=== PATIENT | female | born 1965 | race Caucasian/White ===

== ENCOUNTER 2019-09-22 12:53 | Emergency (ER) | payer SELFPAY ==
[2019-09-22] MEDS ORDERED: dexAMETHasone 10 MG/ML VIAL ONE (14:53)
--- NOTE | 2019-09-22 15:05 | RAD REPORT ---
EXAM DESCRIPTION: RAD - Hand Right 3 View - 09/22/2019 2:47 pm CLINICAL HISTORY: PAINworsening hand pain, patient provided history of arthritis COMPARISON: Hand Right 3 View dated 10/26/2013 FINDINGS: No fracture is identified. There is no dislocation or periosteal reaction noted. Mild IP joint space narrowing present without erosive component. Minimal marginal spurring seen at the fifth DIP joint. No periarticular calcification, mass or measurable soft tissue swelling. No foreign body s een. IMPRESSION: Minimal degenerative change present similar to 2013. No acute finding.
--- NOTE | 2019-09-22 15:16 | ER ---
Nurse's Notes [facility] Name: Jess Oquendo Age: 54 yrs Sex: Female : 1965 Arrival Date: 09/22/2019 Time: 12:54 Bed 20 Private MD: Diagnosis: Carpal tunnel syndrome;Primary osteoarthritis, unspecified hand Presentation: 09/21 13:00 Chief complaint: Patient states: Arthritis on both hands, and worst on R hand. For the ca1 past few days, it's worst, numb, swelling and has shooting pain. Coronavirus screen: Proceed with normal triage. Patient denies a cough. Patient denies shortness of breath or difficulty breathing. Patient denies measured and/or subjective temperature greater than 100.4F prior to today's visit. Patient denies travel on a cruise ship or to a country the [facility] currently lists as an affected area. Patient denies contact with known and/or suspected case of COVID-19. Ebola Screen: Patient negative for fever greater than or equal to 101.5 degrees Fahrenheit, and additional compatible Ebola Virus Disease symptoms Patient denies exposure to infectious person. Patient denies travel to an Ebola-affected area in the 21 days before illness onset. No symptoms or risks identified at this time. Initial Sepsis Screen: Does the patient meet any 2 criteria? No. Patient's initial sepsis screen is negative. Does the patient have a suspected source of infection? No. Patient's initial sepsis screen is negative. Risk Assessment: Do you want to hurt yourself or someone else? Patient reports no desire to harm self or others. Onset of symptoms was September 22, 2019. 13:00 Method Of Arrival: Ambulatory ca1 13:00 Acuity: BELKYS 3 ca1 CARDIO CLINICIAN: 13:05 LMP N/A - Post-menopause ca1 Historical: - Allergies: 13:05 ACETAMINOPHEN; ca1 13:05 caffeine; ca1 13:05 PENICILLINS; ca1 - Home Meds: 13:05 None [Active]; ca1 - PMHx: 13:05 Arthritis; ca1 - PSHx: 13:05 Tubal ligation; Tonsillectomy; ca1 - Immunization history:: Adult Immunizations up to date. - Social history:: Smoking status: Patient reports the use of cigarette tobacco products, smokes one-half pack cigarettes per day. - Family history:: not pertinent. - Hospitalizations: : No recent hospitalization is reported. Screenin:00 Abuse screen: Denies threats or abuse. Nutritional screening: No deficits noted. rb1 Tuberculosis screening: No symptoms or risk factors identified. Fall Risk None identified. Assessment: 14:00 General: Appears in no apparent distress. Behavior is calm, cooperative. Pain: rb1 Complains of pain in right hand Pain currently is 8 out of 10 on a pain scale. Pain began x 1 week. Neuro: Level of Consciousness is awake, alert, obeys commands, Oriented to person, place, time, situation. Neuro: Reports numbness in right hand Tingling starting in the left hand. Cardiovascular: Capillary refill < 3 seconds. Respiratory: Airway is patent Respiratory effort is even, unlabored, Respiratory pattern is regular, symmetrical. GI: No signs and/or symptoms were reported involving the gastrointestinal system. : No signs and/or symptoms were reported regarding the genitourinary system. Derm: Skin is pink, warm \T\ dry. Musculoskeletal: Range of motion: limited in right hand. 14:41 Reassessment: X-ray at the bedside. rb1 15:00 Reassessment: Patient appears in no apparent distress at this time. Patient and/or rb1 family updated on plan of care and expected duration. Pain level reassessed. Patient is alert, oriented x 3, equal unlabored respirations, skin warm/dry/pink. Vital Signs: 13:00 BP 169 / 104; Pulse 111; Resp 15 S; Temp 98.1(TE); Pulse Ox 98% on R/A; Weight 72.57 kg ca1 (R); Height 5 ft. 5 in. (165.10 cm) (R); Pain 8/10; 15:00 BP 162 / 98; Pulse 107; Resp 16; Pulse Ox 99% on R/A; rb1 13:00 Body Mass Index 26.63 (72.57 kg, 165.10 cm) ca1 ED Course: 12:54 Patient arrived in ED. as 13:04 Triage completed. ca1 13:05 Arm band placed on right wrist. ca1 13:54 Michelle Garrett, RN is Primary Nurse. ca1 13:59 Rick Walsh MD is Attending Physician. rn 14:00 Patient has correct armband on for positive identification. Bed in low position. Call rb1 light in reach. Side rails up X 1. Pulse ox on. NIBP on. Warm blanket given. 14:35 Deborah Koo, RN is Primary Nurse. rb1 14:47 XRAY Hand RIGHT 3 View In Process Unspecified. EDMS 15:13 Sean Kaiser MD is Referral Physician. rn 15:42 Orthoglass splint: wrist. 4 15:56 Patient did not have IV access during this emergency room visit. rb1 15:56 No provider procedures requiring assistance completed. rb1 Administered Medications: 14:47 Drug: Decadron 10 mg Route: IM; Site: right deltoid; rb1 15:03 Follow up: Response: No adverse reaction rb1 Outcome: 15:15 Discharge ordered by MD. rn 15:56 Discharged to home ambulatory, with family. iw 15:56 Condition: good 15:56 Discharge instructions given to patient, Instructed on discharge instructions, follow up and referral plans. medication usage, Demonstrated understanding of instructions, follow-up care, medications, splint care, Prescriptions given X 1. 15:56 Patient left the ED. iw Signatures: Dispatcher [employer] Barbie Sommer Irene, RN RN Rick Cavanaugh MD MD rn Barber, Rebecca, RN RN rb1 Michelle Garrett RN RN [facility] Jason Odon[facility]
--- NOTE | 2019-09-22 15:16 | EDPHYS ---
Physician Documentation [facility] Name: Jess Oquendo Age: 54 yrs Sex: Female : 1965 Arrival Date: 09/22/2019 Time: 12:54 Bed 20 Private MD: ED Physician Rick Walsh HPI: 09/21 15:03 This 54 yrs old Female presents to ER via Ambulatory with complaints of rn Numbness Of Hand, Hand Pain. 15:03 The patient or guardian reports pain. The complaints affect the left hand diffusely, rn right hand diffusely. Onset: The symptoms/episode began/occurred 1 year(s) ago. Modifying factors: The symptoms are alleviated by nothing, the symptoms are aggravated by movement. Severity of symptoms: At their worst the symptoms were mild, in the emergency department the symptoms are unchanged. The patient has experienced similar episodes in the past. The patient has not recently seen a physician. Reports pain to both hands, right hand started hurting more than a year ago, has been compensating with left hand for a few months, and now left hand hurting the same, reports numbness and tingling with shooting pains to both hands, worse at night and with overuse. No fever or rash. . 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 - Social history:: Smoking status: Patient reports the use of cigarette tobacco products, smokes one-half pack cigarettes per day. - Family history:: not pertinent. - Hospitalizations: : No recent hospitalization is reported. ROS: 15:03 Constitutional: Negative for fever, chills, and weight loss, MS/Extremity: Negative for rn injury and deformity, + bilateral hand pain and tingling Skin: Negative for injury, rash, and discoloration, Neuro: Negative for weakness Exam: 15:03 Constitutional: This is a well developed, well nourished patient who is awake, alert, rn and in no acute distress. MS/ Extremity: Pulses equal, no cyanosis. Left hand with FROM, no weakness, right hand with mild diffuse swelling, no focal tenderness, no deviation or fingers/joints, no fusiform swelling/erythema. Nothing more proximal than bilateral wrists. Vital Signs: 13:00 BP 169 / 104; Pulse 111; Resp 15 S; Temp 98.1(TE); Pulse Ox 98% on R/A; Weight 72.57 kg ca1 (R); Height 5 ft. 5 in. (165.10 cm) (R); Pain 8/10; 15:00 BP 162 / 98; Pulse 107; Resp 16; Pulse Ox 99% on R/A; rb1 13:00 Body Mass Index 26.63 (72.57 kg, 165.10 cm) ca1 MDM: 14:00 Patient medically screened. rn 15:12 Differential diagnosis: carpal tunnel syndrome, arthritis. Data reviewed: vital signs, rn nurses notes, radiologic studies, plain films, and as a result, I will discharge patient. Counseling: I had a detailed discussion with the patient and/or guardian regarding: the historical points, exam findings, and any diagnostic results supporting the discharge/admit diagnosis, radiology results, the need for outpatient follow up, to return to the emergency department if symptoms worsen or persist or if there are any questions or concerns that arise at home. Special discussion: I discussed with the patient/guardian in detail that at this point there is no indication for admission to the hospital. It is understood, however, that if the symptoms persist or worsen the patient needs to return immediately for re-evaluation. Based on the history and exam findings, there is no indication for further emergent testing or inpatient evaluation. I discussed with the patient/guardian the need to see the hand specialist for further evaluation of the symptoms. 09/21 14:27 Order name: XRAY Hand RIGHT 3 View; Complete Time: 15:10 rn 09/21 15:12 Order name: Splint - Wrist: pre-formed wrist splints, both wrists, cock up splints; rn Complete Time: 15:45 Administered Medications: 14:47 Drug: Decadron 10 mg Route: IM; Site: right deltoid; rb1 15:03 Follow up: Response: No adverse reaction rb1 Disposition: 09/22/19 15:15 Discharged to Home. Impression: Carpal tunnel syndrome, Primary osteoarthritis, unspecified hand. - Condition is Stable. - Discharge Instructions: Arthritis, Carpal Tunnel Syndrome, Wrist Splint. - Prescriptions for Medrol (Adriel) 4 mg Oral Tablets, Dose Pack - take 1 tablet by ORAL route as directed - follow package instructions; 1 packet. - Medication Reconciliation Form, Thank You Letter, Antibiotic Education, Prescription Opioid Use form. - Follow up: Sean Kaiser MD; When: As needed; Reason: Recheck today's complaints, Re-evaluation by your physician. - Problem is new. - Symptoms have improved. Signatures: Dispatcher [employer] EDKatherine Olguin RN RN iw Rick Walsh MD MD rn Barber, Rebecca, RN RN rb1 Michelle Garrett RN RN ca1 Corrections: (The following items were deleted from the chart) 15:56 15:15 09/22/2019 15:15 Discharged to Home. Impression: Carpal tunnel syndrome; Primary iw osteoarthritis, unspecified hand. Condition is Stable. Forms are Medication Reconciliation Form, Thank You Letter, Antibiotic Education, Prescription Opioid Use. Follow up: Sean Kaiser; When: As needed; Reason: Recheck today's complaints, Re-evaluation by your physician. Problem is new. Symptoms have improved. rn
[2019-09-22 16:01] VITALS: BP 169/104; TEMP 98.1; O2SAT 98
== END 2019-09-22 15:56 | disposition home or self-care (01) ==
LOC: ER 12:53
DX: G56.03 Carpal tunnel syndrome, bilateral upper limbs (principal); M19.042 Primary osteoarthritis, left hand; M19.041 Primary osteoarthritis, right hand; F17.210 Nicotine dependence, cigarettes, uncomplicated; Z88.0 Allergy status to penicillin; Z88.6 Allergy status to analgesic agent; Z91.018 Allergy to other foods
CPT/HCPCS: 96372; 99284; J1100

== ENCOUNTER 2020-12-19 13:18 | Emergency (ER) | payer SELFPAY ==
[2020-12-19] MEDS ORDERED: LIDOCAINE 4% PATCH ONE ×2 (15:47→15:55)
[2020-12-19] MEDS ORDERED: TRAMADOL HCL 50 MG TAB ONE ×2 (15:49→15:55)
--- NOTE | 2020-12-19 16:00 | RAD REPORT ---
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 Alignment of lumbar spine is satisfactory. No fracture or dislocation Large amount of stool is present throughout the colon
--- NOTE | 2020-12-19 16:01 | RAD REPORT ---
EXAM DESCRIPTION: RAD - Hip Right 2 View - 12/19/2020 3:43 pm CLINICAL HISTORY: Right hip pain FINDINGS: No fracture or dislocation is seen. Mild osteoarthritis right hip mainly consisting of subchondral sclerosis
--- NOTE | 2020-12-19 16:25 | ER ---
Nurse's Notes [facility] Name: Jess Oquendo Age: 55 yrs Sex: Female : 1965 Arrival Date: 12/19/2020 Time: 13:21 Bed 8 Private MD: Diagnosis: Lumbago with sciatica, right side Presentation: 12/19 13:36 Chief complaint: Patient states: R hip pain for 10 days. Pain radiates into R leg now. ll1 Tingling to R foot area. No trauma or falls. Coronavirus screen: Vaccine status: Client denies travel out of the [place] in the last 14 days. At this time, the client does not indicate any symptoms associated with coronavirus-19. Coronavirus screen: Vaccine status: Patient reports receiving the 1st dose of the Covid vaccine. Ebola Screen: Patient denies travel to an Ebola-affected area in the 21 days before illness onset. 13:36 Method Of Arrival: Ambulatory ll1 13:39 Initial Sepsis Screen: Does the patient meet any 2 criteria? No. Patient's initial ll1 sepsis screen is negative. Does the patient have a suspected source of infection? No. Patient's initial sepsis screen is negative. Risk Assessment: Do you want to hurt yourself or someone else? Patient reports no desire to harm self or others. Onset of symptoms was December 09, 2020. 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 - Social history:: Smoking status: Patient reports the use of cigarette tobacco products, smokes one-half pack cigarettes per day. Screenin:30 Abuse screen: Denies threats or abuse. Denies injuries from another. Nutritional jl7 screening: No deficits noted. Tuberculosis screening: No symptoms or risk factors identified. Fall Risk None identified. Assessment: 15:15 General: Appears in no apparent distress. uncomfortable, Behavior is calm, cooperative, jl7 appropriate for age. Pain: Complains of pain in right lower back Pain radiates to right leg Pain currently is 8 out of 10 on a pain scale. Neuro: Level of Consciousness is awake, alert, obeys commands, Oriented to person, place, time, situation. Cardiovascular: Patient's skin is warm and dry. Respiratory: Airway is patent Respiratory effort is even, unlabored, Respiratory pattern is regular, symmetrical. Derm: Skin is pink, warm \T\ dry. 16:23 Reassessment: Patient appears in no apparent distress at this time. No changes from jl7 previously documented assessment. Patient and/or family updated on plan of care and expected duration. Pain level reassessed. Patient is alert, oriented x 3, equal unlabored respirations, skin warm/dry/pink. Vital Signs: 13:36 BP 175 / 100; Pulse 110; Resp 17; Temp 97.4; Pulse Ox 99% ; Weight 63.5 kg; Height 5 ll1 ft. 5 in. (165.10 cm); Pain 8/10; 16:24 BP 157 / 105; Pulse 79; Resp 15; Pulse Ox 100% ; jl7 13:36 Body Mass Index 23.30 (63.50 kg, 165.10 cm) ll1 ED Course: 13:21 Patient arrived in ED. rg4 13:39 Arm band placed on. ll1 13:40 Triage completed. ll1 14:48 Patient placed in an exam room, on a stretcher. hb 15:00 Rosemarie Copeland, NAILA is Primary Nurse. sv 15:02 Noman Chappell NP is PHCP. pm1 15:02 Rick Walsh MD is Attending Physician. pm1 15:30 Patient has correct armband on for positive identification. Placed in gown. Bed in low jl7 position. Call light in reach. Side rails up X 1. 15:43 XRAY Hip RIGHT 2 view In Process Unspecified. EDMS 15:43 XRAY Lumbar Spine (3 Views) In Process Unspecified. EDMS 16:44 No provider procedures requiring assistance completed. Patient did not have IV access jl7 during this emergency room visit. Administered Medications: 16:09 Not Given (Physician Discretion): traMADol 50 mg PO once; RASS on ADMIN: Combtv4, Very pm1 Agttd3, Agttd2, Rstlss1, AlertClm0, Drwsy-1, Lt Sdtn-2, Mod Sdtn-3, Dp Sdtn-4, UnArsble-5 16:20 Drug: Lidoderm Patch 5 % (700 mg/patch) 1 patches Route: Topical; Site: affected area; jl7 16:20 Drug: Flexeril (cyclobenzaprine) 10 mg Route: PO; jl7 16:20 Drug: Ketorolac 30 mg Route: IM; Site: right deltoid; jl7 Outcome: 16:24 Discharge ordered by MD. pm1 16:44 Discharged to home ambulatory. jl7 16:44 Condition: stable 16:44 Discharge instructions given to patient, Instructed on discharge instructions, follow up and referral plans. medication usage, Demonstrated understanding of instructions, follow-up care, medications, Prescriptions given X 3. 16:45 Patient left the ED. jl7 Signatures: Dispatcher [employer] EDRosemarie Esteban RN RN sv Marinas, Patrick, ATHLETIC FIELD CUSTODIAN ATHLETIC FIELD CUSTODIAN pm1 Analia Jones RN RN hb Garcia, Rubi rg4 Sukhi Thomas RN RN jl7 Marlon Adams RN RN ll1 Corrections: (The following items were deleted from the chart) 13:40 13:36 BP 175 / 100; Pulse 115bpm; Resp 17bpm; Pulse Ox 99%; Temp 97.4F; 63.5 kg; Height ll1 5 ft. 5 in.; BMI: 23.3; Pain 8/10; ll1
--- NOTE | 2020-12-19 16:25 | EDPHYS ---
Physician Documentation [facility] Name: Jess Oquendo Age: 55 yrs Sex: Female : 1965 Arrival Date: 12/19/2020 Time: 13:21 Bed 8 Private MD: ED Physician Rick Walsh HPI: 12/19 16:09 This 55 yrs old Female presents to ER via Ambulatory with complaints of Hip pm1 Pain, Leg Pain. 16:09 The patient or guardian reports pain. that occurred at home, sustained from unknown pm1 reason, There is no obvious deformity, The patient is able to self ambulate. The patient is able to bear their full body weight. The patient's discomfort radiates to the Right hip to right calf. The complaints affect the buttocks and right leg. Onset: The symptoms/episode began/occurred 3 day(s) ago. Modifying factors: The symptoms are alleviated by remaining still, the symptoms are aggravated by weight bearing, Movement. Associated signs and symptoms: Pertinent negatives: Swelling, numbness, tingling. Severity of symptoms: in the emergency department the symptoms are unchanged. The patient has not experienced similar symptoms in the past. The patient has not recently seen a physician. 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 - Social history:: Smoking status: Patient reports the use of cigarette tobacco products, smokes one-half pack cigarettes per day. ROS: 16:09 Constitutional: Negative for fever, chills, and weight loss, Cardiovascular: Negative pm1 for chest pain, palpitations, and edema, Respiratory: Negative for shortness of breath, cough, wheezing, and pleuritic chest pain, Abdomen/GI: Negative for abdominal pain, nausea, vomiting, diarrhea, and constipation, Back: Negative for injury and pain. 16:09 Skin: Negative for injury, rash, and discoloration, Neuro: Negative for headache, weakness, numbness, tingling, and seizure. 16:09 MS/extremity: Positive for of the Right buttocks and right leg, Negative for decreased range of motion, deformity. 16:09 All other systems are negative. Exam: 16:09 Constitutional: This is a well developed, well nourished patient who is awake, alert, pm1 and in no acute distress. Head/Face: Normocephalic, atraumatic. 16:09 Back: No spinal tenderness. No costovertebral tenderness. Full range of motion. Skin: Warm, dry with normal turgor. Normal color with no rashes, no lesions, and no evidence of cellulitis. 16:09 Neck: Exam negative for acute changes, ROM/movement: is normal, is supple. 16:09 Cardiovascular: Exam negative for acute changes, Rate: normal, Rhythm: regular, Pulses: no pulse deficits are appreciated. 16:09 Respiratory: Exam negative for acute changes, respiratory distress, shortness of breath. 16:09 Abdomen/GI: Exam negative for Inspection: abdomen appears normal, Palpation: abdomen is soft and non-tender, in all quadrants. 16:09 Musculoskeletal/extremity: Extremities: grossly normal except: noted in the Right buttocks tenderness, palpation causing radiation of pain down the back of her right leg to the calf: There is no evidence of decreased ROM, deformity, Circulation is intact in all extremities. the right foot and right leg Sensation intact. 16:09 Neuro: Exam negative for acute changes, Orientation: is normal, Mentation: is normal, Motor: is normal, moves all fours. Vital Signs: 13:36 BP 175 / 100; Pulse 110; Resp 17; Temp 97.4; Pulse Ox 99% ; Weight 63.5 kg; Height 5 ll1 ft. 5 in. (165.10 cm); Pain 8/10; 16:24 BP 157 / 105; Pulse 79; Resp 15; Pulse Ox 100% ; jl7 13:36 Body Mass Index 23.30 (63.50 kg, 165.10 cm) ll1 MDM: 15:10 Patient medically screened. pm1 16:22 Data reviewed: vital signs. Data interpreted: Pulse oximetry: on room air is 99 %. pm1 Interpretation: normal. Counseling: I had a detailed discussion with the patient and/or guardian regarding: the historical points, exam findings, and any diagnostic results supporting the discharge/admit diagnosis, the need for outpatient follow up, to return to the emergency department if symptoms worsen or persist or if there are any questions or concerns that arise at home. 12/19 14:25 Order name: XRAY Hip RIGHT 2 view; Complete Time: 16: rn 12/19 14:25 Order name: XRAY Lumbar Spine (3 Views); Complete Time: 16:09 rn Administered Medications: 16:09 Not Given (Physician Discretion): traMADol 50 mg PO once; RASS on ADMIN: Combtv4, Very pm1 Agttd3, Agttd2, Rstlss1, AlertClm0, Drwsy-1, Lt Sdtn-2, Mod Sdtn-3, Dp Sdtn-4, UnArsble-5 16:20 Drug: Lidoderm Patch 5 % (700 mg/patch) 1 patches Route: Topical; Site: affected area; jl7 16:20 Drug: Flexeril (cyclobenzaprine) 10 mg Route: PO; jl7 16:20 Drug: Ketorolac 30 mg Route: IM; Site: right deltoid; jl7 Disposition: 18:31 Co-signature as Attending Physician, Rick Walsh MD I agree with the assessment and rn plan of care. Attestation: The patient's history, exam findings, diagnostics, and a summary of any interventions or procedures was reviewed in detail with Noman Chappell NP. Disposition Summary: 12/19/20 16:24 Discharge Ordered Location: Home pm1 Problem: new pm1 Symptoms: have improved pm1 Condition: Stable pm1 Diagnosis - Lumbago with sciatica, right side pm1 Followup: pm1 - With: Emergency Department - When: As needed - Reason: Worsening of condition Followup: pm1 - With: Private Physician - When: 2 - 3 days - Reason: Recheck today's complaints, Continuance of care, Re-evaluation by your physician Discharge Instructions: - Discharge Summary Sheet pm1 - Acute Back Pain, Adult pm1 - Sciatica pm1 Forms: - Medication Reconciliation Form pm1 - Thank You Letter pm1 - Antibiotic Education pm1 - Prescription Opioid Use pm1 Prescriptions: - Lidoderm 5 % Topical adhesive patch,medicated - apply 1 patch by TRANSDERMAL route once daily As needed 12 hours on and 12 pm1 hours off in a 24 hour period; 10 patch; Refills: 0, Product Selection Permitted - Cyclobenzaprine 10 mg Oral Tablet - take 1 tablet by ORAL route every 8 hours As needed; 30 tablet; Refills: 0, pm1 Product Selection Permitted - Diclofenac Sodium 75 mg Oral tablet,delayed release (DR/EC) - take 1 tablet by ORAL route 2 times per day As needed; 30 tablet; Refills: 0, pm1 Product Selection Permitted Signatures: Dispatcher [employer] Rick Nuno MD MD rn Marinas, Patrick, NP FILM PROCESSOR pm1 Sukhi Thomas RN RN jl7 Marlon Adams RN RN ll1
[2020-12-19] MEDS ORDERED: CYCLOBENZAPRINE 10 MG TAB ONE (16:38)
[2020-12-19] MEDS ORDERED: KETOROLAC 30 MG/ML INJ ONE (16:38)
[2020-12-19 16:56] VITALS: TEMP 97.4
[2020-12-19 16:57] VITALS: BP 157/105; O2SAT 100
== END 2020-12-19 16:45 | disposition home or self-care (01) ==
LOC: ER 13:18
DX: M54.41 Lumbago with sciatica, right side (principal); Z88.0 Allergy status to penicillin; F17.210 Nicotine dependence, cigarettes, uncomplicated
CPT/HCPCS: 72100; 96372; 99283

== ENCOUNTER 2022-08-30 12:01 | Day surgery (SDC) | payer OTHER, SELFPAY ==
[2022-08-30] MEDS ORDERED: Ringers Lactate 1,000 ML IV ONE (12:17)
[2022-08-30 12:46] VITALS: TEMP 97.2
[2022-08-30] MEDS ORDERED: propofoL 200 MG/20 ML VIAL IV ONE (13:21)
[2022-08-30] MEDS ORDERED: LIDOCAINE 1% MPF 5 ML VIAL ONE (13:21)
[2022-08-30 14:09] VITALS: BP 125/75; O2SAT 99
== END 2022-08-30 14:25 | disposition home or self-care (01) ==
LOC: OR 12:01
PROVIDERS: ATTEND Surgery
PROC: 0DJD8ZZ Inspection of Lower Intestinal Tract, Via Natural or Artificial Opening Endoscopic (ICD-10-PCS; principal; 2022-08-30 14:15)
DX: Z12.11 Encounter for screening for malignant neoplasm of colon (principal); K64.8 Other hemorrhoids
CPT/HCPCS: 45378; J2704; J2001; J7120